=== PATIENT | male | born 1950 | race Caucasian/White ===

== ENCOUNTER 2021-05-18 19:53 | Emergency (ER) | payer MEDICARE ==
[2021-05-18] MEDS ORDERED: methocarbamoL 500 MG TABLET PO STA (20:20)
[2021-05-18] MEDS ORDERED: HYDROmorphone 1 MG/ML CARPUJECT IM STA (20:20)
[2021-05-18] MEDS ORDERED: oxyCODONE 5 MG TABLET PO STA (21:02)
--- NOTE | 2021-05-18 21:11 | ED Physician Documentation ---
History of Present Illness - Stated complaint Stated Complaint: NECK PX - Chief complaint Chief Complaint: Trauma Hd/Nk - History obtained from History obtained from: Patient - History of Present Illness Timing: Today Pain level max: 10 Pain level now: 10 - Additonal information Additional information: 70-year-old male states that he has been sleeping on a new pillow, woke up this morning with his neck hurting, is gradually worsened throughout the day and is now unable to move his neck. No recent trauma. No falls. Worse with movement, better with rest. No fevers. No chills. No numbness or tingling. No focal neurological deficits. Review of Systems Constitutional: denies: Fever, Chills, Myalgias Ears: denies: Reviewed and negative Nose: denies: Rhinorrhea / runny nose Respiratory: denies: Cough GI: denies: Abdominal Pain, Nausea, Vomiting Skin: denies: Rash Musculoskeletal: denies: Back pain Neurologic: denies: Focal weakness, Numbness, Headache PD PAST MEDICAL HISTORY - Past Medical History Past Medical History: Yes Cardiovascular: High cholesterol, Other - Past Surgical History Past Surgical History: Yes Ortho: Spine surgery Cardiovascular: Valve replacement - Present Medications Home Medications: Ambulatory Orders Medication Instructions Recorded Confirmed Atorvastatin Calcium 05/18/21 Dabigatran [Pradaxa] 150 mg PO BID 05/18/21 05/18/21 Metoprolol Tartrate [Lopressor] 25 mg PO 05/18/21 Oxycodone HCl/Acetaminophen 1 - 2 each PO Q6H PRN #14 tablet 05/18/21 [Percocet 5-325 mg Tablet] methocarbamoL [Robaxin] 500 mg PO Q6H PRN #20 tablet 05/18/21 - Allergies Allergies/Adverse Reactions: Allergies Allergy/AdvReac Type Severity Reaction Status Date / Time Penicillins Allergy Unknown Verified 05/18/21 20:02 - Social History Does the pt smoke?: No Smoking Status: Never smoker Does the pt drink ETOH?: No Does the pt have substance abuse?: No - Immunizations Immunizations are current?: No Immunizations: Other immun not current PD ED PE NORMAL - Vitals Vital signs reviewed: Yes - General General: Alert and oriented X 3, No acute distress, Well developed/nourished - HEENT HEENT: PERRL, Moist mucous membranes - Neck Neck: C-Spine cleared by NEXUS criteria, Other (No midline tenderness to palpation or percussion. No step-off or deformity. Does have paraspinal cervical spasm bilaterally. Limited range of motion secondary to pain) - Cardiac Cardiac: RRR, Strong equal pulses - Respiratory Respiratory: No respiratory distress, Clear bilaterally - Abdomen Abdomen: Soft, Non tender, Non distended - Back Back: No spinal TTP - Derm Derm: Warm and dry - Extremities Extremities: No edema - Neuro Neuro: Alert and oriented X 3, senior operations manager 2-12 intact, No motor deficit, No sensory deficit, Normal speech Eye Opening: Spontaneous Motor: Obeys Commands Verbal: Oriented GCS Score: 15 - Psych Psych: Normal mood, Normal affect Results - Vitals Vitals: Vital Signs - 24 hr 05/18/21 05/18/21 19:57 21:16 Temperature 36 C L Heart Rate 71 67 Respiratory 20 18 Rate Blood Pressure 135/74 H 139/72 H O2 Saturation 96 97 Oxygen O2 Source Room air PD MEDICAL DECISION MAKING - ED course Complexity details: considered differential, d/w patient ED course: 70 year-old male with what appears to be neck spasm/wry neck. Given Dilaudid, Robaxin. Pain significantly improved. He is able to move his neck significantly more than upon arrival. We will place him on pain medication and muscle relaxants for home and encouraged gentle stretching of the neck to clear the spasm. I am prescribing a short course of short-acting opioid pain medication for this patient. I have reviewed the patients FIREWOR[employer]KER and no concerning findings were noted. I have discussed that the opioids are for short term therapy only, and will not be refilled from the ED. patient counseled regarding signs and symptoms for which I believe and urgent re-evaluation would be necessary. Patient with good understanding of and agreement to plan and is comfortable going home at this time This document was made in part using voice recognition software. While efforts are made to proofread this document, sound alike and grammatical errors may occur. Departure - Departure Disposition: 01 Home, Self Care Clinical Impression: Neck muscle spasm Condition: Good Instructions: ED Spasm Neck No Injury, ED Wry Neck Ch Follow-Up: Provider,Other [Primary Care Provider] - As Needed Prescriptions: Oxycodone HCl/Acetaminophen [Percocet 5-325 mg Tablet] 1 - 2 each PO Q6H PRN #14 tablet PRN Reason: pain methocarbamoL [Robaxin] 500 mg PO Q6H PRN #20 tablet PRN Reason: muscle spasm Comments: Your prescriptions were sent to [facility] in [place]. Please continue to gently stretch your neck at home. Return if you worsen. I am prescribing a short course of narcotic pain medication for you. These are potentially dangerous and addictive medications that should be used carefully. These medications may constipate you. Take an gnlo-znd-fdumvhn stool softener (docusate) twice daily with plenty of water while taking these medications. If you go 24 hours without a bowel movement, take shoa-ged-ofvgrtm miralax, per package instructions. Do not drink or drive while taking these medications. If you received narcotic or sedating medications while in the emergency department, do not drive for 24 hours. Store this medication in a safe, secure place and out of reach of children. It is a violation of federal law to give or sell this medication to another person or to use in a manner other than prescribed. The ED will not refill narcotic prescriptions, including prescriptions lost or stolen. To dispose of unwanted medications: 1. [facility] at [address] in [place] has a medication drop box. They accept prescription medications (in pill form) Saturday through Saturday 9:00 a.m. to 5:00 p.m. 2. [facility] accepts prescription medications (in pill form only) for disposal year round. Call for more information. 3. Contact the [facility] for the next [facility] sponsored prescription drug collection event. , [phone], or [phone]; Discharge Date/Time: 05/18/21 21:19
[2021-05-18 21:16] VITALS: BP 139/72
== END 2021-05-18 21:19 | disposition home or self-care (01) ==
LOC: ED 19:53
DX: M62.838 Other muscle spasm (principal)
CPT/HCPCS: 96372; 99282; 99283; A9270; J1170

== ENCOUNTER 2022-07-26 18:53 | Emergency (ER) | payer MEDICARE, OTHER ==
[2022-07-26] MEDS ORDERED: ERYTHROMYCIN OPHTH OINT 1 GM TUBE EACHEYE STA (19:57)
[2022-07-26] MEDS ORDERED: ERYTHROMYCIN OPHTH OINT 1 GM TUBE ONE (20:10)
--- NOTE | 2022-07-26 20:14 | ED Physician Documentation ---
History of Present Illness - Stated complaint Stated Complaint: EYE INJURY - Chief complaint Chief Complaint: Heent - Additonal information Additional information: 71-year-old male presents emergency department for evaluation of bilateral the left greater than right eye discomfort and pain. Reports sweeping in the garage today and swept up a lot of sand and dust. He thinks he may have gotten some debris in the eyes. He has a focus of discomfort in the left upper eyelid. No loss of vision. He did try irrigating his eyes at home which helped but since the afternoon is progressed he has had progressive discomfort in the eye as well as some mucoid drainage in general conjunctival injection. 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 Does not wear contact lenses. Review of Systems Eyes: reports: Discharge, Irritation. denies: Loss of vision PD PAST MEDICAL HISTORY - Past Medical History Past Medical History: Yes Cardiovascular: High cholesterol, Atrial fibrillation, Other - Past Surgical History Past Surgical History: Yes Ortho: Spine surgery Cardiovascular: Valve replacement - Present Medications Home Medications: Ambulatory Orders Medication Instructions Recorded Confirmed Atorvastatin Calcium 05/18/21 Dabigatran [Pradaxa] 150 mg PO BID 05/18/21 05/18/21 Metoprolol Tartrate [Lopressor] 25 mg PO 05/18/21 Oxycodone HCl/Acetaminophen 1 - 2 each PO Q6H PRN #14 tablet 05/18/21 [Percocet 5-325 mg Tablet] methocarbamoL [Robaxin] 500 mg PO Q6H PRN #20 tablet 05/18/21 - Allergies Allergies/Adverse Reactions: Allergies Allergy/AdvReac Type Severity Reaction Status Date / Time Penicillins Allergy Unknown Verified 07/26/22 19:14 - Social History Does the pt smoke?: No Smoking Status: Never smoker Does the pt drink ETOH?: No Does the pt have substance abuse?: No - Immunizations Immunizations are current?: No Immunizations: Other immun not current - POLST Patient has POLST: No PD ED PE EXPANDED - Eyes Eyes: PERRL, EOMI, Normal eyelids, Injected conj/sclera, Exudate (Mucoid drainage bilaterally), Normal corneas, Anterior chambers clear, Other (Under fluorescein stain no corneal abrasion or ulcerations were noted. No obvious foreign body in either eye. Clear posterior chambers. Pressures 22 in each eye.). No: Eyelid injury, Eyelid swelling, Eyelid erythema, No eyelid FB (everted), Subconj hemorrhage, Corneal abrasion, Corneal ulcer, Fluorescein uptake Results - Vitals Vitals: Vital Signs - 24 hr 07/26/22 19:10 Temperature 36.6 C Heart Rate 69 Respiratory 19 Rate Blood Pressure 144/73 H O2 Saturation 97 Oxygen O2 Source Room air PD Medical Decision Making - ED course Complexity details: reviewed results, re-evaluated patient, d/w patient ED course: 71-year-old male presents emergency department for evaluation of acute left eye pain That occurred after sweeping up dust and sand in the garage. He initially felt like he got debris in his eye. He had a lot of irritation and mucoid drainage. He did irrigate the eye at home which she states made it better but then the pain returned. There was no loss of vision. Here in the emergency department he has bilateral conjunctival injection. However fluorescein stain was negative bilaterally. The eye pressures were negative. Extraocular movements were preserved bilaterally. He has clear changeI was unable to visualize any obvious foreign body. The left eye was thoroughly irrigated with 500 mL of saline however the symptoms did not improve. Subsequently I did place erythromycin ointment in the eye and applied an eye patch. Patient was reporting that pain had started to improve though did not fully seferino. I suspected that he had some dust and debris that is irritated the eye and the ointment overnight should help. He is being dispensed with a hydrocodone prepack given the late hour of the day. He is advised close follow- up with an catalyst manufacturing operator preferably tomorrow or Saturday for reevaluation. The usual emergent return precautions were discussed for worsening symptoms Departure - Departure Disposition: Home, Self Care Clinical Impression: Acute left eye pain Condition: Stable Record reviewed to determine appropriate education?: Yes Comments: Maxime there were no obvious findings when we did your eye exam. There is nothing to suggest a corneal abrasion or ulceration. No foreign bodies were seen. The pressures inside of your eye were normal. I suspect that you did however get some sand in your eye when sweeping it up and this may have caused some irritation to the upper eyelid. Please apply the antibiotic ointment to your left eye 2-3 times a day. Wear the patch for comfort. A cool compress over the eye can be helpful. I like you to be seen by an catalyst manufacturing operator in the next 24 to 48 hours. If your symptoms or not improving or worsening before then you can return to the ER. A limited amount of hydrocodone has been sent home with you tonight to help with acute pain. Do not drive if taking this medication. I am prescribing a short course of narcotic pain medication for you. These are potentially dangerous and addictive medications that should be used carefully. These medications may constipate you. Take an edfg-xdf-iiuailx stool softener (docusate) twice daily with plenty of water while taking these medications. If you go 24 hours without a bowel movement, take unic-dpe-bgnydzi miralax, per package instructions. Do not drink or drive while taking these medications. If you received narcotic or sedating medications while in the emergency department, do not drive for 24 hours. Store this medication in a safe, secure place and out of reach of children. It is a violation of federal law to give or sell this medication to another person or to use in a manner other than prescribed. The ED will not refill narcotic prescriptions, including prescriptions lost or stolen. To dispose of unwanted medications: 1. [facility] at [address] in [facility] has a medication drop box. They accept prescription medications (in pill form) Saturday through Saturday 9:00 a.m. to 5:00 p.m. 2. [facility] accepts prescription medications (in pill form only) for disposal year round. Call for more information. 3. Contact the [facility] for the next [facility] sponsored prescription drug collection event. , [phone], or [phone]; Note that many narcotic pain relievers also contain Tylenol/acetaminophen. Please ensure that your total dose of acetaminophen from all sources does not exceed 3 g (3000 mg) per day.
[2022-07-26] MEDS ORDERED: HYDROcod/ACET 5/325 Prepack 4 PO STA (20:15)
[2022-07-26 20:51] VITALS: BP 169/83
== END 2022-07-26 20:48 | disposition home or self-care (01) ==
LOC: ED 18:53
DX: H57.12 Ocular pain, left eye (principal)
CPT/HCPCS: 99282; 99283; J3490

== ENCOUNTER 2022-08-15 12:47 | Emergency (ER) | payer MEDICARE ==
[2022-08-15 12:55] VITALS: BP 131/71
--- NOTE | 2022-08-15 13:14 | ED Physician Documentation ---
PD HPI SKIN - Stated complaint Stated Complaint: LOWER ABD RASH - Chief complaint Chief Complaint: Wound - Additional information Additional information: 71-year-old male presents with a rash on the chest wall and left rib cage. He states the initial rash was across the upper chest wall, pelvic couple of weeks ago. It was dry, mildly pruritic. He did not think much of it. He then went to [place] and ended up getting diagnosed with a staph infection in both eyes was started on Keflex and eyedrops. The infection in his eyes improved but then he developed a new area of rash on the left lower rib cage into the left flank. It is not burning or painful, only mildly pruritic, he has not had to take anything for it. He was just concerned because he is about to embark on a several week road trip back to [place] and wanted to be sure it was nothing more serious. He has not attempted any medication or other treatment for this issue. He denies any fever or chills, no chest pain or difficulty breathing, no abdominal pain nausea vomiting or diarrhea. He denies any new medications other than those listed above, no new soaps detergents lotions or other irritant contacts. PD PAST MEDICAL HISTORY - Past Medical History Past Medical History: Yes Cardiovascular: High cholesterol, Atrial fibrillation, Other Respiratory: None Neuro: None Endocrine/Autoimmune: None GI: None : None HEENT: None Psych: None Musculoskeletal: None Derm: None - Past Surgical History Past Surgical History: Yes Ortho: Spine surgery Cardiovascular: Valve replacement - Present Medications Home Medications: Ambulatory Orders Medication Instructions Recorded Confirmed Atorvastatin Calcium 40 mg PO DAILY 05/18/21 Dabigatran [Pradaxa] 150 mg PO BID 05/18/21 05/18/21 Metoprolol Tartrate [Lopressor] 25 mg PO DAILY 05/18/21 Doxycycline [Vibramycin] 100 mg PO BID 7 Days #14 tablet 08/15/22 - Allergies Allergies/Adverse Reactions: Allergies Allergy/AdvReac Type Severity Reaction Status Date / Time Penicillins Allergy Unknown Verified 08/15/22 12:49 - Social History Does the pt smoke?: No Smoking Status: Never smoker Does the pt drink ETOH?: No Does the pt have substance abuse?: No - Immunizations Immunizations are current?: No Immunizations: Other immun not current - POLST Patient has POLST: No PD ED PE NORMAL - Vitals Vital signs reviewed: Yes - General General: Alert and oriented X 3, No acute distress, Well developed/nourished - HEENT HEENT: Atraumatic, Moist mucous membranes - Cardiac Cardiac: RRR, No murmur - Respiratory Respiratory: No respiratory distress, Clear bilaterally - Abdomen Abdomen: Normal bowel sounds, Soft, Non tender, Non distended - Derm Derm: Normal color, Warm and dry, Other (There is a dry, scabbed and scaly maculopapular rash across the upper chest, no vesicles there is a very tiny pustule of the left neck without surrounding erythema. There are dry scabbed papules scattered along the left lower rib cage into the left mid axillary region. There are no vesicles). No: No rash (No pustules, no tenderness to palpation, no erythema or cellulitis, no target lesions.) - Extremities Extremities: No deformity, Normal ROM s pain, No edema - Neuro Neuro: Alert and oriented X 3 Eye Opening: Spontaneous Motor: Obeys Commands Verbal: Oriented GCS Score: 15 Results - Vitals Vitals: Vital Signs - 24 hr 08/15/22 08/15/22 12:49 12:55 Temperature 36.5 C Heart Rate 70 Respiratory 16 17 Rate Blood Pressure 131/71 H O2 Saturation 96 Oxygen O2 Source Room air PD Medical Decision Making - ED course Complexity details: considered differential, d/w patient ED course: 71-year-old male presents with a nonspecific mildly pruritic rash on the upper chest and left rib cage as described in HPI. He has no systemic symptoms. Differentials considered included an atopic dermatitis, contact dermatitis, medication allergy, related to his recent staph infection, and I think much less likely shingles. Though the rash on the left rib cage is in common location for shingles, there are no vesicles and he has no pain in this area. It also appears quite similar to the rashes across the upper chest that appeared first. I suspect this is likely dermatitis and recommended keeping the area moisturized, they can use topical steroid if needed [id number]-[id number]. He can also use Benadryl if needed. I am going to give him a prescription for doxycycline to start only if the rash spreads and given his recent staph infection, this could be a staph dermatitis. I do not think this is shingles based on physical exam and in any case he is several days out with lesions that already appeared to be drying therefore antiviral therapy would likely not provide any relief. I discussed all of these issues with the patient and he is stable for discharge home and stable to go on his road trip but I have advised him to follow-up with his machine marker in [place] when he returns home if ongoing symptoms. Departure - Departure Disposition: Home, Self Care Clinical Impression: Maculopapular rash, generalized Condition: Good Instructions: ED Dermatitis Non Specific Rash Prescriptions: Doxycycline [Vibramycin] 100 mg PO BID 7 Days #14 tablet Comments: As we discussed, your rash could be secondary to recent antibiotic use, eczema, or related to your recent staph infection. Though it is in a common location for shingles, it does not have the appearance of shingles and you do not have the burning pain that is typically associated with shingles. In any case, If it was a mild case of shingles, it is already drying and given the duration since symptoms started, antivirals would likely be ineffective. I recommend that you keep the areas moisturized with a hypoallergenic lotion or ointment, and try to keep clean and dry, avoid sweating or prolonged heat. I have given you a prescription for doxycycline if the rash were to spread, I would like you to start this antibiotic. I do recommend that you follow-up with your machine marker when you return to [place] if you are having ongoing symptoms. Avoid any new soaps/detergents/fabric softeners which could be contributing. If it is itchy, you can take Benadryl or you can use otye-vdu-blitgfe hydrocortisone cream.
== END 2022-08-15 13:15 | disposition home or self-care (01) ==
LOC: ED 12:47
DX: R21 Rash and other nonspecific skin eruption (principal)
CPT/HCPCS: 99281; 99283